=== PATIENT | male | born 1985 | race Caucasian/White ===

== ENCOUNTER 2022-08-03 11:10 | Outpatient (CLI) | payer BC, SELFPAY ==
[2022-08-03 10:19] LABS: Cholesterol* 264 mg/dL (90-199); Glucose* 92 mg/dL (60-115); HDL Cholesterol* 53 mg/dL (>=40); LDL Cholesterol Calculated 169 mg/dL (<100); Triglycerides* 208 mg/dL (40-149)
== END 2022-08-03 11:11 | disposition home or self-care (01) ==
PROVIDERS: PCP Family Medicine; Visit Provider Family Medicine
DX: Z13.6 Encounter for screening for cardiovascular disorders (principal); Z13.1 Encounter for screening for diabetes mellitus
CPT/HCPCS: 80061; 82947

== ENCOUNTER 2023-06-20 19:42 | Outpatient (CLI) | payer BC, SELFPAY ==
--- NOTE | 2023-06-27 08:44 | W.PM.SLEEP ---
Sleep Study Details Details Interpreting Provider: Emperatriz Date of Sleep Study: 06/20/23 Sleep Study Details: STUDY TYPE:? Home unattended ? BMI:? 31.7 ORDERING PROVIDER:? Vlad INDICATION:? Concerns about sleep apnea ? SLEEP SUMMARY:? 440.5 minutes monitored RESPIRATORY SUMMARY:? AHI 23.4, supine 29.5, left lateral 4.7 Low oxygen 80 4% of study oxygen less than 90% Snoring 34.7% PERIODIC LIMB MOVEMENTS OF SLEEP:? Not recorded during home study CARDIAC:? Range 56-100, mean 69.4 beats per minute IMPRESSION:? Moderate obstructive sleep apnea with supine position dependency and significant desaturations RECOMMENDATION: Treatment options include CPAP AutoSet 4-17, dental appliance and/or airway expansion surgery.
== END 2023-06-20 19:43 | disposition home or self-care (01) ==
LOC: SLEEP 19:43
PROVIDERS: PCP Family Medicine; Visit Provider Family Medicine
DX: G47.33 Obstructive sleep apnea (adult) (pediatric) (principal)
CPT/HCPCS: 95806

== ENCOUNTER 2023-10-13 07:43 | Outpatient (CLI) | payer BC, SELFPAY | END 2023-10-13 07:44 | disposition home or self-care (01) | LOC: NFLDREF 12:16 | PROVIDERS: PCP Family Medicine; Referring Provider Family Medicine; Visit Provider Family Medicine | DX: E78.5 Hyperlipidemia, unspecified (principal) | CPT/HCPCS: 80061 ==

== ENCOUNTER 2024-12-17 08:00 | Outpatient (CLI) | payer BC, SELFPAY | END 2024-12-17 08:01 | disposition home or self-care (01) | LOC: NFLDREF 12-19 01:26 | PROVIDERS: PCP Family Medicine; Referring Provider Family Medicine; Visit Provider Family Medicine | DX: E78.5 Hyperlipidemia, unspecified (principal) | CPT/HCPCS: 80061 ==